=== PATIENT | female | born 2000 | race American Indian/Alaskan Native ===

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

== ENCOUNTER 2021-12-05 13:49 | Emergency (ER) | payer MEDICAID ==
[2021-12-05 16:07] VITALS: BP 143/78
--- NOTE | 2021-12-05 18:26 | Emergency Department Report ---
ED General Adult HPI - General Chief complaint: Medical Clearance Stated complaint: I am worried PUI?: No Time Seen by Provider: 12/05/21 18:11 Source: patient, RN notes reviewed Mode of arrival: Ambulatory Limitations: No Limitations - History of Present Illness Initial comments: The patient was evaluated in the emergency department for symptoms described in the history of present illness. He/she was evaluated in the context of the global COVID-19 pandemic, which necessitated consideration that the patient might be at risk for infection with the virus that causes COVID-19. Institutional protocols and algorithms that pertain to the evaluation of patients at risk for COVID-19 are in a state of rapid change based on info rmation released by regulatory bodies including the CDC and federal and state organizations. These policies and algorithms were followed during the patient's care in the emergency department. Please note that these policies, procedures and recommendations changed on a rapid basis. The patient is a 21-year-old female who reports that she is not , who has a history of body mass index of 45.9 and is not COVID-19 vaccinated, presenting to the ER today with request for reassurance. She reports a strong family history of seizures, and she reports that she got her distal tongue pierced about a week ago. Since getting her tongue pierced, she is having difficulty speaking as clearly as she usually does. She also reports that she has no physical pain. She does not use recreational drugs. She is concerned that she might be having seizures, but she has not had any convulsive activity, nor has she had any witnessed seizures. Severity scale (0 -10): 0 Consistency: constant Improves with: none Worsens with: none - Related Data Previous Rx's Medication Instructions Recorded Last Taken Type Chlorhexidine Mouthwash [Peridex] 15 ml MM BID #1 bottle 12/05/21 Unknown Rx Allergies Allergy/AdvReac Type Severity Reaction Status Date / Time naproxen [From Naprosyn] AdvReac Vomiting Verified 12/05/21 16:00 ED Review of Systems ROS: Stated complaint: SEIZURE SYMPTOMS Other details as noted in HPI Constitutional: denies: fever Eyes: denies: eye discharge, vision change ENT: other (Pain at the tip of the tongue where tongue piercing is located). denies: ear pain Respiratory: denies: shortness of breath Cardiovascular: denies: chest pain Gastrointestinal: denies: abdominal pain Genitourinary: denies: dysuria Neurological: denies: weakness Psychiatric: anxiety ED Past Medical Hx - Past Medical History Previous Medical History?: No - Surgical History Additional Surgical History: LEG - Social History Smoking Status: Never Smoker Substance Use Type: None - Medications Home Medications: Home Medications Medication Instructions Recorded Confirmed Last Taken Type Chlorhexidine Mouthwash [Peridex] 15 ml MM BID #1 bottle 12/05/21 Unknown Rx ED Physical Exam - General Limitations: No Limitations General appearance: alert, anxious, obese - Head Head exam: Present: atraumatic, normocephalic - Eye Eye exam: Present: normal appearance, PERRL, EOMI - ENT ENT exam: Present: normal exam, normal orophraynx, mucous membranes moist, normal external ear exam, other (There is a tongue piercing on the distal tip of her tongue. There is no evidence of superinfection.) - Neck Neck exam: Present: normal inspection, full ROM. Absent: tenderness, meningismus - Respiratory Respiratory exam: Present: normal lung sounds bilaterally. Absent: respiratory distress, wheezes, rales, rhonchi, stridor, decreased breath sounds - Cardiovascular Cardiovascular Exam: Present: regular rate, normal rhythm, normal heart sounds. Absent: bradycardia, tachycardia, irregular rhythm, systolic murmur, diastolic murmur, rubs, gallop - GI/Abdominal GI/Abdominal exam: Present: soft. Absent: distended, tenderness, guarding, rebound, rigid, pulsatile mass - Extremities Exam Extremities exam: Present: normal inspection, full ROM, other (2+ pulses noted in the bilateral upper and lower extremities. There is no palpable cord. negative Homans sign. Muscular compartments are soft. The pelvis is stable.). Absent: pedal edema, calf tenderness - Back Exam Back exam: Present: normal inspection, full ROM. Absent: tenderness, CVA tenderness (R), CVA tenderness (L), paraspinal tenderness, vertebral tenderness - Neurological Exam Neurological exam: Present: alert, oriented X3, normal gait, other (There is no facial droop. The tongue is midline. Extraocular movements are intact bilaterally. There is 5 out of 5 strength in bilateral upper and lower extremities. Sensation is intact to light touch bilateral upper and lower extremities. There is no past-pointing. There is no pronator drift.). Absent: motor sensory deficit - Psychiatric Psychiatric exam: Present: anxious - Skin Skin exam: Present: warm, dry, intact, normal color. Absent: rash ED Course Vital Signs 12/05/21 16:06 Temperature 97.8 F Pulse Rate 102 H Respiratory 18 Rate Blood Pressure 143/78 [Right] O2 Sat by Pulse 100 Oximetry - Reevaluation(s) Reevaluation #1: 12/05/21 20:51 Tachycardia resolved, heart rate 90 bpm. ED Medical Decision Making - Lab Data Result diagrams: 12/05/21 18:34 12/05/21 18:34 Vital Signs 12/05/21 16:06 Temperature 97.8 F Pulse Rate 102 H Respiratory 18 Rate Blood Pressure 143/78 [Right] O2 Sat by Pulse 100 Oximetry Lab Results 12/05/21 12/05/21 12/05/21 Range/Units 18:34 18:34 18:34 WBC 13.5 H (4.5-11.0) K/mm3 RBC 4.55 (3.65-5.03) M/mm3 Hgb 12.6 (10.1-14.3) gm/dl Hct 39.2 (30.3-42.9) % MCV 86 (79-97) fl MCH 28 (28-32) pg MCHC 32 (30-34) % RDW 14.9 (13.2-15.2) % Plt Count 559 H (140-440) K/mm3 Sodium 138 (137-145) mmol/L Potassium 3.7 (3.6-5.0) mmol/L Chloride 102.7 (98-107) mmol/L Carbon Dioxide 21 L (22-30) mmol/L Anion Gap 18 mmol/L BUN 8 (7-17) mg/dL Creatinine 0.5 L (0.6-1.2) mg/dL Estimated GFR > 60 ml/min BUN/Creatinine Ratio 16 % Glucose 81 (65-100) mg/dL Calcium 9.2 (8.4-10.2) mg/dL Magnesium (1.7-2.3) mg/dL Total Bilirubin 0.20 (0.1-1.2) mg/dL AST 26 (5-40) units/L ALT 35 (7-56) units/L Alkaline Phosphatase 124 (35-129) units/L Total Protein 8.6 H (6.3-8.2) g/dL Albumin 4.2 (3.9-5) g/dL Albumin/Globulin Ratio 1.0 % TSH 0.893 (0.270-4.200) mlU/mL HCG, Quant (0-4) mIU/mL Salicylates (2.8-20.0) mg/dL Urine Opiates Screen Urine Methadone Screen Acetaminophen (10.0-30.0) ug/mL Ur Barbiturates Screen Ur Phencyclidine Scrn Ur Amphetamines Screen U Benzodiazepines Scrn Urine Cocaine Screen U Marijuana (THC) Screen Drugs of Abuse Note Plasma/Serum Alcohol (0-0.07) % 12/05/21 12/05/21 12/05/21 Range/Units 18:34 18:34 18:34 WBC (4.5-11.0) K/mm3 RBC (3.65-5.03) M/mm3 Hgb (10.1-14.3) gm/dl Hct (30.3-42.9) % MCV (79-97) fl MCH (28-32) pg MCHC (30-34) % RDW (13.2-15.2) % Plt Count (140-440) K/mm3 Sodium (137-145) mmol/L Potassium (3.6-5.0) mmol/L Chloride (98-107) mmol/L Carbon Dioxide (22-30) mmol/L Anion Gap mmol/L BUN (7-17) mg/dL Creatinine (0.6-1.2) mg/dL Estimated GFR ml/min BUN/Creatinine Ratio % Glucose (65-100) mg/dL Calcium (8.4-10.2) mg/dL Magnesium (1.7-2.3) mg/dL Total Bilirubin (0.1-1.2) mg/dL AST (5-40) units/L ALT (7-56) units/L Alkaline Phosphatase (35-129) units/L Total Protein (6.3-8.2) g/dL Albumin (3.9-5) g/dL Albumin/Globulin Ratio % TSH (0.270-4.200) mlU/mL HCG, Quant < 2 (0-4) mIU/mL Salicylates < 0.3 L (2.8-20.0) mg/dL Urine Opiates Screen Urine Methadone Screen Acetaminophen 5.0 L (10.0-30.0) ug/mL Ur Barbiturates Screen Ur Phencyclidine Scrn Ur Amphetamines Screen U Benzodiazepines Scrn Urine Cocaine Screen U Marijuana (THC) Screen Drugs of Abuse Note Plasma/Serum Alcohol (0-0.07) % 12/05/21 12/05/21 12/05/21 Range/Units 18:34 18:34 Unknown WBC (4.5-11.0) K/mm3 RBC (3.65-5.03) M/mm3 Hgb (10.1-14.3) gm/dl Hct (30.3-42.9) % MCV (79-97) fl MCH (28-32) pg MCHC (30-34) % RDW (13.2-15.2) % Plt Count (140-440) K/mm3 Sodium (137-145) mmol/L Potassium (3.6-5.0) mmol/L Chloride (98-107) mmol/L Carbon Dioxide (22-30) mmol/L Anion Gap mmol/L BUN (7-17) mg/dL Creatinine (0.6-1.2) mg/dL Estimated GFR ml/min BUN/Creatinine Ratio % Glucose (65-100) mg/dL Calcium (8.4-10.2) mg/dL Magnesium 2.20 (1.7-2.3) mg/dL Total Bilirubin (0.1-1.2) mg/dL AST (5-40) units/L ALT (7-56) units/L Alkaline Phosphatase (35-129) units/L Total Protein (6.3-8.2) g/dL Albumin (3.9-5) g/dL Albumin/Globulin Ratio % TSH (0.270-4.200) mlU/mL HCG, Quant (0-4) mIU/mL Salicylates (2.8-20.0) mg/dL Urine Opiates Screen Negative Urine Methadone Screen Negative Acetaminophen (10.0-30.0) ug/mL Ur Barbiturates Screen Negative Ur Phencyclidine Scrn Negative Ur Amphetamines Screen Negative U Benzodiazepines Scrn Negative Urine Cocaine Screen Negative U Marijuana (THC) Screen Negative Drugs of Abuse Note Disclamer Plasma/Serum Alcohol < 0.01 (0-0.07) % - EKG Data EKG shows normal: sinus rhythm Rate: normal - EKG Data 12/05/21 20:49 The EKG is interpreted at 19: 00 Sinus rhythm, 90 bpm. Normal axis, normal P wave axis, high left ventricular voltage, QTC 414 ms. Abnormal EKG. Not a STEMI. - Medical Decision Making Differential diagnosis, including but not limited to: Encounter for medical screening examination, feared complaint unfounded, tongue piercing in place Assessment and plan: 21-year-old female, who reports that she is not , who also reports a history of chronic cognitive disability, who has a GCS of 15, with NIH score of 0, who presents to the ER primarily for reassurance. She reports that while she has not had any seizures, convulsions, she is worried that she might have a seizure. She also reports that she recently had a tongue piercing placed around 4 to 5 days ago, now has difficulty enunciating words. When I speak to the patient she is not stridulous, she is speaking in full sentences, clinically sober, and ambulates with a steady gait without cerebellar signs. No seizure-like activity has been noted. Her laboratory studies are nonactionable. Her EKG is unremarkable. The patient may follow-up with her outpatient primary care doctor. Of note, has poor dentition, counseled to brush teeth twice daily, floss once daily, she can have chlorhexidine mouthwash for poor dentition, follow-up with a dentist. Also encouraged to complete COVID-19 vaccination series. Patient observed in this ER for hours without clinical decompensation. Critical care attestation.: If time is entered above; I have spent that time in minutes in the direct care of this critically ill patient, excluding procedure time. ED Disposition Clinical Impression: Body mass index 45.0-49.9, adult, COVID-19 vaccination not done, Poor dental hygiene, Encounter for medical screening examination Disposition: HOME / SELF CARE / HOMELESS Is pt being admited?: No Does the pt Need Aspirin: No Condition: Good Additional Instructions: Recommend the patient follow-up with a primary care doctor within the next 2 weeks. Recommend that patient exercise aggressively, and aggressively lose weight. Mcdonough teeth twice daily, floss once daily, use chlorhexidine mouthwash, and follow-up with a dentist within the next month. Recommend completion of outpatient COVID-19 vaccination series. Laboratory studies and EKG were unremarkable today. Patient was not found to have evidence of an emergent medical condition today. Patient was not found to have evidence of seizure today the emergency room. Please return to the emergency room right away with new pain, worsened pain, migration of pain, projectile vomiting, change in mental status, confusion, inability tolerate liquid feeds, new, worsened or different symptoms not present on the initial emergency room evaluation Prescriptions: Chlorhexidine Mouthwash [Peridex] 15 ml MM BID #1 bottle Referrals: [facility] [Provider Group] - 3-5 Days [facility] [Outside] - 3-5 Days
[2021-12-05 19:04] LABS: Hematocrit 39.2 % (30.3-42.9); Hemoglobin 12.6 gm/dl (10.1-14.3); Mean Corpuscular HGB Conc 32 % (30-34); Mean Corpuscular Volume 86 fl (79-97); Platelet Count 559 K/mm3 (140-440); Red Blood Count 4.55 M/mm3 (3.65-5.03); Red Cell Distribution Width 14.9 % (13.2-15.2)
[2021-12-05 19:24] LABS: Alanine Aminotransferase 35 units/L (7-56); Albumin 4.2 g/dL (3.9-5); Blood Urea Nitrogen 8 mg/dL (7-17); Calcium 9.2 mg/dL (8.4-10.2); Hemolysis Index 3
[2021-12-05 19:29] LABS: BUN/Creatinine Ratio 16
[2021-12-05 19:58] LABS: Amphetamine Screen,Urine Negative; Benzodiazepines Screen,Urine Negative; Cannabinoid Screen,Urine Negative; Cocaine Screen,Urine Negative; Methadone Screen,Urine Negative; Opiate Screen,Urine Negative
--- NOTE | 2021-12-06 10:01 | Electrocardiograph Report ---
[facility] Test Date: 2021-12-05 Test Time: 19:00:12 Pat Name: JOVANNI RESTREPO Department: Room: Gender: [employer] Associate: DIANNE : 2000 Requested By: TARA ISABEL Order Number: [id number] Reading MD: Antwon Rios Measurements Intervals [place] Rate: 90 P: 62 AL: 152 QRS: 66 QRSD: 69 T: 35 QT: 360 QTc: 442 Interpretive Statements Sinus rhythm No previous ECG available for comparison Electronically Signed On 12-06-2021 10:00:29 EST by Antwon Rios
== END 2021-12-05 23:50 | disposition home or self-care (01) ==
LOC: ED 13:49
DX: Z00.00 Encounter for general adult medical examination without abnormal findings (principal); K08.9 Disorder of teeth and supporting structures, unspecified; R56.9 Unspecified convulsions; Z68.42 Body mass index [BMI] 45.0-49.9, adult; Z88.8 Allergy status to other drugs, medicaments and biological substances; Z79.899 Other long term (current) drug therapy
CPT/HCPCS: 36415; 80053; 80307; 80320; 83735; 84443; 84702; 85027; 93005; 93010; 99283; G0480

== ENCOUNTER 2022-02-23 13:56 | Emergency (ER) | payer MEDICAID ==
[2022-02-23 16:37] VITALS: BP 143/97
--- NOTE | 2022-02-23 17:11 | Emergency Department Report ---
ED General Adult HPI - General Chief complaint: Medical Clearance Stated complaint: MOLD EXPOSURE/CHECK UP Time Seen by Provider: 02/23/22 16:55 Source: patient Mode of arrival: Ambulatory Limitations: No Limitations - History of Present Illness Initial comments: Patient is a 21-year-old -[place] female with past medical history of morbid obesity who presents to the ED stating that she would like to be tested for suspected mold exposure at home. Patient states that her roof has been leaking and she noticed some discoloration of the saline and decided come to the ED for suspected mold exposure. Patient denies cough, nausea and vomiting, fever, chills, swollen lips or tongue, itching, rashes, nasal and sinus congestion, sore throat, diarrhea, abdominal pain, facial swelling, dysphagia or dysphonia and palpitations. MD Complaint: Mold exposure, no symptoms -: Sudden, days(s) (2) Radiation: non-radiation Severity scale (0 -10): 0 Improves with: none Worsens with: none Associated Symptoms: denies other symptoms. denies: confusion, chest pain, cough, diaphoresis, fever/chills, headaches, loss of appetite, malaise, rash, seizure, shortness of breath, syncope, weakness Treatments Prior to Arrival: none - Related Data Previous Rx's Medication Instructions Recorded Last Taken Type Chlorhexidine Mouthwash [Peridex] 15 ml MM BID #1 bottle 12/05/21 Unknown Rx Allergies Allergy/AdvReac Type Severity Reaction Status Date / Time naproxen [From Naprosyn] AdvReac Vomiting Verified 12/05/21 16:00 ED Review of Systems ROS: Stated complaint: MOLD EXPOSURE/CHECK UP Other details as noted in HPI Constitutional: denies: chills, fever Eyes: denies: eye pain, eye discharge, vision change ENT: denies: ear pain, throat pain Respiratory: denies: cough, shortness of breath, wheezing Cardiovascular: denies: chest pain, palpitations Endocrine: no symptoms reported Gastrointestinal: denies: abdominal pain, nausea, diarrhea Genitourinary: denies: urgency, dysuria, discharge Musculoskeletal: denies: back pain, joint swelling, arthralgia Skin: denies: rash, lesions Neurological: denies: headache, weakness, paresthesias Psychiatric: denies: anxiety, depression Hematological/Lymphatic: denies: easy bleeding, easy bruising ED Past Medical Hx - Past Medical History Hx Congestive Heart Failure: Yes Additional medical history: Morbid obesity - Surgical History Additional Surgical History: LEG - Social History Smoking Status: Never Smoker Substance Use Type: None - Medications Home Medications: Home Medications Medication Instructions Recorded Confirmed Last Taken Type Chlorhexidine Mouthwash [Peridex] 15 ml MM BID #1 bottle 12/05/21 Unknown Rx ED Physical Exam - General Limitations: No Limitations General appearance: alert, in no apparent distress - Head Head exam: Present: atraumatic, normocephalic, normal inspection - Eye Eye exam: Present: normal appearance, PERRL, EOMI Pupils: Present: normal accommodation - ENT ENT exam: Present: normal exam, normal orophraynx, mucous membranes moist, TM's normal bilaterally, normal external ear exam - Neck Neck exam: Present: normal inspection, full ROM. Absent: tenderness - Respiratory Respiratory exam: Present: normal lung sounds bilaterally. Absent: respiratory distress, wheezes, rales, rhonchi, stridor, chest wall tenderness, decreased breath sounds - Cardiovascular Cardiovascular Exam: Present: regular rate, normal rhythm, normal heart sounds. Absent: systolic murmur, diastolic murmur, rubs, gallop - GI/Abdominal GI/Abdominal exam: Present: soft, normal bowel sounds. Absent: tenderness, guarding, rebound, hyperactive bowel sounds, hypoactive bowel sounds, organomegaly - Extremities Exam Extremities exam: Present: normal inspection, full ROM, normal capillary refill. Absent: tenderness - Back Exam Back exam: Present: normal inspection, full ROM. Absent: tenderness, CVA tenderness (R), CVA tenderness (L), muscle spasm, paraspinal tenderness, vertebral tenderness - Neurological Exam Neurological exam: Present: alert, oriented X3, CN II-XII intact, normal gait, reflexes normal - Psychiatric Psychiatric exam: Present: normal affect, normal mood - Skin Skin exam: Present: warm, dry, intact, normal color. Absent: rash ED Course Vital Signs 02/23/22 16:35 Temperature 97.9 F Pulse Rate 100 H Respiratory 20 Rate Blood Pressure 143/97 [Right] O2 Sat by Pulse 100 Oximetry ED Medical Decision Making - Medical Decision Making This is a 21-year-old -[place] female with past medical history of morbid obesity who presents to the ED stating that she would like to be tested for suspected mold exposure at home. Patient states that her roof has been leaking and she noticed some discoloration of the saline and decided come to the ED for suspected mold exposure. In the ED, patient is alert and oriented x3 and is not in any distress. Patient will discharge home and advised to follow- up with her primary care physician as needed for allergy testing. Patient is advised return to the ED immediately if symptoms get worse. - Differential Diagnosis Well adult exam; mold exposure Critical care attestation.: If time is entered above; I have spent that time in minutes in the direct care of this critically ill patient, excluding procedure time. ED Disposition Clinical Impression: Suspected exposure to mold Disposition: 01 HOME / SELF CARE / HOMELESS Is pt being admited?: No Does the pt Need Aspirin: No Condition: Stable Additional Instructions: Follow-up with your primary care physician as needed, drink plenty of fluids. Return to the ED immediately if symptoms get worse. Referrals: [facility] [Provider Group] - as needed Forms: Work/School Release Form(ED) Time of Disposition: 17:01 Print Language: BOTSWANAN
== END 2022-02-23 17:16 | disposition home or self-care (01) ==
LOC: ED 13:56
DX: Z77.120 Contact with and (suspected) exposure to mold (toxic) (principal); Z88.8 Allergy status to other drugs, medicaments and biological substances; Z79.899 Other long term (current) drug therapy
CPT/HCPCS: 99282

== ENCOUNTER 2022-05-10 21:38 | Emergency (ER) | payer MEDICAID ==
[2022-05-10 22:19] VITALS: BP 115/88
--- NOTE | 2022-05-10 23:16 | Emergency Department Report ---
ED General Adult HPI - General Chief complaint: Psych Stated complaint: PSYCH EVAL Time Seen by Provider: 05/10/22 22:32 Source: patient, EMS ( EMS documentation not available at time of chart dictation ), RN notes reviewed Mode of arrival: Stretcher Limitations: No Limitations - History of Present Illness Initial comments: The patient was evaluated in the emergency department for symptoms described in the history of present illness. He/she was evaluated in the context of the global COVID-19 pandemic, which necessitated consideration that the patient might be at risk for infection with the virus that causes COVID-19. Institutional protocols and algorithms that pertain to the evaluation of patients at risk for COVID-19 are in a state of rapid change based on information released by regulatory bodies including the CDC and federal and state organizations. These policies and algorithms were followed during the patient's care in the emergency department. Please note that these policies, procedures and recommendations changed on a rapid basis. This patient is a 22-year-old female who states that she is not . She denies physical pain. She is not homicidal or suicidal. she has not tried to overdose on anything. She denies hallucinations. She presents to the department with a complaint of feeling overwhelmed by work and life. She reports that she is still in school. She does not use recreational drugs. 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 She plans to graduate in 2022. -: Gradual Associated Symptoms: denies other symptoms - Related Data Previous Rx's Medication Instructions Recorded Last Taken Type Chlorhexidine Mouthwash [Peridex] 15 ml MM BID #1 bottle 12/05/21 Unknown Rx Allergies Allergy/AdvReac Type Severity Reaction Status Date / Time naproxen [From Naprosyn] AdvReac Vomiting Verified 12/05/21 16:00 ED Review of Systems ROS: Stated complaint: PSYCH EVAL Other details as noted in HPI Constitutional: denies: fever Eyes: denies: eye discharge ENT: denies: epistaxis Respiratory: denies: cough Cardiovascular: denies: chest pain Gastrointestinal: denies: abdominal pain Psychiatric: denies: auditory hallucinations, visual hallucinations, homicidal thoughts, suicidal thoughts ED Past Medical Hx - Past Medical History Previous Medical History?: Yes Hx Congestive Heart Failure: Yes Hx Psychiatric Treatment: Yes (Bipolar, ADHD) Additional medical history: Morbid obesity - Surgical History Past Surgical History?: Yes Additional Surgical History: Left LEG - Social History Smoking Status: Current Every Day Smoker Substance Use Type: None - Medications Home Medications: Home Medications Medication Instructions Recorded Confirmed Last Taken Type Chlorhexidine Mouthwash [Peridex] 15 ml MM BID #1 bottle 12/05/21 Unknown Rx ED Physical Exam - General Limitations: No Limitations General appearance: alert, in no apparent distress, obese - Head Head exam: Present: atraumatic, normocephalic - Eye Eye exam: Present: normal appearance, PERRL, EOMI. Absent: nystagmus - ENT ENT exam: Present: normal exam, normal orophraynx, mucous membranes moist, normal external ear exam - Neck Neck exam: Present: normal inspection, full ROM. Absent: tenderness, meningismus - Respiratory Respiratory exam: Present: normal lung sounds bilaterally. Absent: respiratory distress, wheezes, rales, rhonchi, stridor, decreased breath sounds - Cardiovascular Cardiovascular Exam: Present: regular rate, normal rhythm, normal heart sounds. Absent: bradycardia, tachycardia, irregular rhythm, systolic murmur, diastolic murmur, rubs, gallop - GI/Abdominal GI/Abdominal exam: Present: soft. Absent: distended, tenderness, guarding, rebound, rigid, pulsatile mass - Extremities Exam Extremities exam: Present: normal inspection, full ROM, normal capillary refill, other (2+ pulses noted in the bilateral upper and lower extremities. There is no palpable cord. negative Homans sign. Muscular compartments are soft. The pelvis is stable.). Absent: pedal edema, calf tenderness - Back Exam Back exam: Present: normal inspection, full ROM. Absent: tenderness, CVA tenderness (R), CVA tenderness (L), paraspinal tenderness, vertebral tenderness - Neurological Exam Neurological exam: Present: alert, oriented X3, normal gait, reflexes normal, other (No facial droop. Tongue midline. Extraocular movements intact bilaterally. Facial sensation intact to light touch in V1, V2, V3 distribution bilaterally. 5 and a 5 strength in 4 extremities. Sensation intact to light touch in 4 extremities.). Absent: motor sensory deficit - Psychiatric Psychiatric exam: Present: normal affect, normal mood. Absent: anxious, flat affect, manic, homicidal ideation, suicidal ideation - Skin Skin exam: Present: warm, dry, intact, normal color. Absent: rash ED Course Vital Signs 05/10/22 21:38 Temperature 98.7 F Pulse Rate 94 H Respiratory 18 Rate Blood Pressure 115/88 O2 Sat by Pulse 98 Oximetry ED Medical Decision Making - Lab Data Vital Signs 05/10/22 21:38 Temperature 98.7 F Pulse Rate 94 H Respiratory 18 Rate Blood Pressure 115/88 O2 Sat by Pulse 98 Oximetry - Medical Decision Making Differential diagnosis, include but not limited to: Encounter for behavioral health screening examination. Encounter for medical screening examination. Assessment and plan: 22-year-old female with no acute medical complaints, who does not meet criteria for 1013 hold or involuntary confinement. She is clinically sober with a GCS of 15, and does not appear to be in any acute distress. On my assessment, she is smiling, laughing, engaging, and talking in an animated fashion to her next-door neighbor. She does not appear to have an emergent medical or psychiatric condition present at this time. Discussed management coping mechanisms and outpatient follow-up strategies. Return precautions are reviewed. All questions answered. Critical care attestation.: If time is entered above; I have spent that time in minutes in the direct care of this critically ill patient, excluding procedure time. ED Disposition Clinical Impression: Encounter for medical screening examination, Encounter for behavioral health screening Disposition: 01 HOME / SELF CARE / HOMELESS Is pt being admited?: No Does the pt Need Aspirin: No Condition: Good Additional Instructions: Please follow-up with an outpatient mental health specialist within the next week. Avoid consumption of alcohol, tobacco, smoke products and recreational drugs. Please return to the emergency room right away with new pain, worsened pain, migration of pain, projectile vomiting, change in mental status, confusion, inability tolerate liquid feeds, new, worsened or different symptoms not present on the initial emergency room evaluation professional and Agency Contacts To help [facility] (18/05) [place] Crisis Line: Suicide Prevention Line: Crisis Text Line: Text ``START to [phone] Emergency: 911 Outpatient COMMUNITY Behavioral Health Resources: [facility]: [facility] [address] [place], [place] [address] [facility] [address] [place] [address] Thursday thru Thursday - 8am - 5pm Call to schedule an assessment for mental health and substance abuse programs [facility] Address: [address], [place] [address] Thursday thru Thursday- 7am-2pm [facility] Address: [address], [place] [address] Thursday thru Thursday: 8:30AM-5PM Referrals: [facility] [Provider Group] - 3-5 Days [facility] [Outside] - 3-5 Days [facility] [Outside] - 3-5 Days Forms: Work/School Release Form(ED)
== END 2022-05-10 23:55 | disposition home or self-care (01) ==
LOC: ED 21:38
DX: F17.200 Nicotine dependence, unspecified, uncomplicated (principal); Z88.5 Allergy status to narcotic agent
CPT/HCPCS: 99283

== ENCOUNTER 2022-06-13 10:11 | Emergency (ER) | payer MEDICAID ==
[2022-06-13 14:29] LABS: Mucus,Urine FEW /HPF
[2022-06-13 14:38] LABS: Hematocrit 37.8 % (30.3-42.9); Hemoglobin 12.8 gm/dl (10.1-14.3); Mean Corpuscular HGB Conc 34 % (30-34); Mean Corpuscular Volume 85 fl (79-97); Platelet Count 566 K/mm3 (140-440); Red Blood Count 4.43 M/mm3 (3.65-5.03); Red Cell Distribution Width 15.3 % (13.2-15.2)
[2022-06-13 14:42] LABS: Blood Urea Nitrogen 11 mg/dL (7-17); Calcium 9.7 mg/dL (8.4-10.2); Hemolysis Index 3
[2022-06-13 14:44] LABS: Color,Urine Straw (Yellow)
--- NOTE | 2022-06-13 15:00 | Emergency Department Report ---
ED Female HPI - General Chief complaint: Vaginal Bleeding Stated complaint: 5WKS PREG SPOTTING X 5 DAYS Time Seen by Provider: 06/13/22 13:44 Source: patient, EMS Mode of arrival: Ambulatory Limitations: No Limitations - History of Present Illness Initial comments: 22 YO COMES TO ER WITH VAG BLEEDING P HOME PREG TEST DENIES PAIN DENIES FEVER OR CHILLS DENIES N/V/D Complaint: vaginal bleeding -: Sudden, hour(s) Improves with: none Worsens with: none Are you Now?: Yes Associated Symptoms: denies other symptoms, vaginal bleeding. denies: vaginal discharge, abdominal pain, nausea/vomiting, fever/chills - Related Data Sexually active: Yes : 1 Previous Rx's Medication Instructions Recorded Last Taken Type Chlorhexidine Mouthwash [Peridex] 15 ml MM BID #1 bottle 12/05/21 Unknown Rx Allergies Allergy/AdvReac Type Severity Reaction Status Date / Time naproxen [From Naprosyn] AdvReac Vomiting Verified 06/13/22 10:26 ED Review of Systems ROS: Stated complaint: 5WKS PREG SPOTTING X 5 DAYS Other details as noted in HPI Comment: All other systems reviewed and negative ED Past Medical Hx - Past Medical History Previous Medical History?: Yes Hx Congestive Heart Failure: Yes Hx Psychiatric Treatment: Yes (Bipolar, ADHD) Additional medical history: Morbid obesity - Surgical History Past Surgical History?: Yes Additional Surgical History: Left LEG - Family History Family history: no significant - Social History Smoking Status: Current Every Day Smoker Substance Use Type: None - Medications Home Medications: Home Medications Medication Instructions Recorded Confirmed Last Taken Type Chlorhexidine Mouthwash [Peridex] 15 ml MM BID #1 bottle 12/05/21 Unknown Rx ED Physical Exam - General Limitations: No Limitations General appearance: alert, in no apparent distress - Head Head exam: Present: atraumatic, normocephalic - Eye Eye exam: Present: normal appearance - ENT ENT exam: Present: mucous membranes moist - Neck Neck exam: Present: normal inspection - Respiratory Respiratory exam: Present: normal lung sounds bilaterally. Absent: respiratory distress - Cardiovascular Cardiovascular Exam: Present: regular rate, normal rhythm. Absent: systolic murmur, diastolic murmur, rubs, gallop - GI/Abdominal GI/Abdominal exam: Present: soft, normal bowel sounds - Extremities Exam Extremities exam: Present: normal inspection - Back Exam Back exam: Present: normal inspection - Neurological Exam Neurological exam: Present: alert, oriented X3 - Psychiatric Psychiatric exam: Present: normal affect, normal mood - Skin Skin exam: Present: warm, dry, intact, normal color. Absent: rash ED Course Vital Signs 06/13/22 06/13/22 10:12 16:00 Temperature 98.9 F Pulse Rate 86 64 Respiratory 16 16 Rate Blood Pressure 132/82 127/78 [Left] O2 Sat by Pulse 99 100 Oximetry ED Medical Decision Making - Lab Data Result diagrams: 06/13/22 14:10 06/13/22 14:10 - Radiology Data Radiology results: report reviewed, image reviewed SEE REPORT - Medical Decision Making Lab Results 06/13/22 06/13/22 06/13/22 Range/Units 14:10 14:10 14:10 WBC 11.4 H (4.5-11.0) K/mm3 RBC 4.43 (3.65-5.03) M/mm3 Hgb 12.8 (10.1-14.3) gm/dl Hct 37.8 (30.3-42.9) % MCV 85 (79-97) fl MCH 29 (28-32) pg MCHC 34 (30-34) % RDW 15.3 H (13.2-15.2) % Plt Count 566 H (140-440) K/mm3 Sodium 138 (137-145) mmol/L Potassium 4.5 (3.6-5.0) mmol/L Chloride 102.6 (98-107) mmol/L Carbon Dioxide 24 (22-30) mmol/L Anion Gap 16 mmol/L BUN 11 (7-17) mg/dL Creatinine 0.6 (0.6-1.2) mg/dL Estimated GFR > 60 ml/min BUN/Creatinine Ratio 18 % Glucose 77 (65-100) mg/dL Calcium 9.7 (8.4-10.2) mg/dL HCG, Quant < 2 (0-4) mIU/mL Urine Color (Yellow) Urine Turbidity (Clear) Specific Micro (Man) (1.003-1.030) Ur Protein (Man) (Negative) mg/dL Ur Ketones (Man) (Negative) Urine Bilirubin (Man) (Negative) Urine WBC (Auto) (0.0-6.0) /HPF Urine RBC (Auto) (0.0-6.0) /HPF U Epithel Cells (Auto) (0-13.0) /HPF Urine RBC (Manual) (Negative) Urine Mucus /HPF Blood Type Ord Rhogam Gestat Weeks WEEKS 06/13/22 06/13/22 Range/Units 14:10 Unknown WBC (4.5-11.0) K/mm3 RBC (3.65-5.03) M/mm3 Hgb (10.1-14.3) gm/dl Hct (30.3-42.9) % MCV (79-97) fl MCH (28-32) pg MCHC (30-34) % RDW (13.2-15.2) % Plt Count (140-440) K/mm3 Sodium (137-145) mmol/L Potassium (3.6-5.0) mmol/L Chloride (98-107) mmol/L Carbon Dioxide (22-30) mmol/L Anion Gap mmol/L BUN (7-17) mg/dL Creatinine (0.6-1.2) mg/dL Estimated GFR ml/min BUN/Creatinine Ratio % Glucose (65-100) mg/dL Calcium (8.4-10.2) mg/dL HCG, Quant (0-4) mIU/mL Urine Color Straw (Yellow) Urine Turbidity Clear (Clear) Specific Micro (Man) 1.005 (1.003-1.030) Ur Protein (Man) Negative (Negative) mg/dL Ur Ketones (Man) Negative (Negative) Urine Bilirubin (Man) Negative (Negative) Urine WBC (Auto) 1.0 (0.0-6.0) /HPF Urine RBC (Auto) 1.0 (0.0-6.0) /HPF U Epithel Cells (Auto) 2.0 (0-13.0) /HPF Urine RBC (Manual) Negative (Negative) Urine Mucus Few /HPF Blood Type B POSITIVE Ord Rhogam Gestat Weeks Rh pos WEEKS Vital Signs 06/13/22 10:12 Temperature 98.9 F Pulse Rate 86 Respiratory 16 Rate Blood Pressure 132/82 [Left] O2 Sat by Pulse 99 Oximetry LABS NOTED UA NOTED US NOTED PT DC HOME WITH DC PLAN OF CARE INCLUDING OBGYN FOLLOW UP SHE VERABALIZES UNDERSTANDING OF PLAN OF CARE - Differential Diagnosis RO PREG/ECTOPIC/AB Critical care attestation.: If time is entered above; I have spent that time in minutes in the direct care of this critically ill patient, excluding procedure time. ED Disposition Clinical Impression: DUB (dysfunctional uterine bleeding) Disposition: 01 HOME / SELF CARE / HOMELESS Is pt being admited?: No Does the pt Need Aspirin: No Condition: Stable Additional Instructions: NEGATIVE FOLLOW UP WITH OBGYN Referrals: SHAHNAZ CULP MD [Staff Physician] - 3-5 Days Forms: Work/School Release Form(ED) Time of Disposition: 15:48
[2022-06-13 15:12] LABS: BUN/Creatinine Ratio 18
[2022-06-13 16:23] VITALS: BP 127/78
--- NOTE | 2022-06-13 16:29 | Ultrasound Report ---
ULTRASOUND PELVIS INDICATION / CLINICAL INFORMATION: vaginal bleeding/pain. TECHNIQUE: Transabdominal and Transvaginal. Duplex Color Doppler used: Yes. COMPARISON: None available FINDINGS: UTERUS: The uterus measures 7.9 cm in length. Endometrial stripe measures 4 mm. There is no intrauter ine identified. No uterine abnormality is seen. RIGHT ADNEXA: No significant ovarian cyst or mass. Normal color Doppler blood flow. The right ovary m easures 3 cm in length. Small follicular cysts are noted in the right ovary. LEFT ADNEXA: No adnexal masses are seen. The left ovary is not visualized. Normal color Doppler blood flow. URINARY BLADDER: No significant abnormality. FREE FLUID: There is a minimal amount of free fluid in the cul-de-sac. ADDITIONAL FINDINGS: None. IMPRESSION: 1. No intrauterine is seen. 2. There is a minimal amount of free fluid in the cul-de-sac. 3. The right ovary is unremarkable. The left ovary is not seen. Signer Name: Salvador Alvares MD Signed: 06/13/2022 4:25 PM Workstation Name: [id number]
== END 2022-06-13 16:00 | disposition home or self-care (01) ==
LOC: ED 10:11
DX: N93.8 Other specified abnormal uterine and vaginal bleeding (principal); I50.9 Heart failure, unspecified; F31.9 Bipolar disorder, unspecified; F17.200 Nicotine dependence, unspecified, uncomplicated; Z98.890 Other specified postprocedural states; Z88.8 Allergy status to other drugs, medicaments and biological substances; Z79.899 Other long term (current) drug therapy
CPT/HCPCS: 36415; 76830; 76856; 80048; 81001; 84702; 85027; 86900; 86901; 99284